=== PATIENT | male | born 1990 | race Caucasian/White ===

== ENCOUNTER → 2016-07-26 | Outpatient (CLI) | payer OTHER | LOC: FIMAGING 09:29 | PROVIDERS: ATTEND Orthopaedic Surgery Sports Medicine | DX: M24.10 Other articular cartilage disorders, unspecified site (principal); M22.42 Chondromalacia patellae, left knee; M25.462 Effusion, left knee ==

== ENCOUNTER → 2018-06-26 | Outpatient (CLI) | payer MEDICAID | LOC: FIMAGING 08:45 ==